=== PATIENT | female | born 1970 | race African-American/Black ===

== ENCOUNTER 2019-05-31 12:11 | Day surgery (SDC) | payer OTHER ==
[2019-05-29 15:08] VITALS: BMI 26.2
[2019-05-31] MEDS ORDERED: PROPOFOL 20 ML ONE ×2 (12:24)
[2019-05-31 15:02] VITALS: TEMP 98.2
[2019-05-31 15:49] VITALS: BP 110/62; PULSE 94
--- NOTE | 2019-06-02 16:49 | PATH ---
Surgical Pathology Report Patient Name: YARITZA LANGLEY [facility]. Rec. #: [id number] /Age/Gender: 1970 (Age: 48) / F Account: [id number] Location: [facility] Taken: 05/31/2019 Received: 05/31/2019 Reported: 06/02/2019 Physicians: Roxann May M.D. Specimen(s) Received A: SECOND PORTION DUODENUM B: GASTRIC ANTRUM C: GASTRIC POLYP D: GE JUNCTION Clinical History GERD Postoperative diagnosis: Gastric polyp, gastritis Final Diagnosis A. SECOND PORTION DUODENUM, BIOPSY: DUODENAL MUCOSA WITH NO SIGNIFICANT PATHOLOGIC CHANGE. NO HISTOLOGIC EVIDENCE OF INTRAEPITHELIAL LYMPHOCYTOSIS. B. ANTRUM, BIOPSY: GASTRIC MUCOSA WITH CHRONIC GASTRITIS. REACTIVE GASTROPATHY PRESENT. IMMUNOSTAIN FOR H. PYLORI IS NEGATIVE. NEGATIVE FOR INTESTINAL METAPLASIA. C. GASTRIC POLYP, BIOPSY: FUNDIC GLAND POLYP. IMMUNOSTAIN FOR H. PYLORI IS NEGATIVE. D. 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 REFLUX ESOPHAGITIS PRESENT. NEGATIVE FOR DYSPLASIA. Electronically Signed José Manuel Benjamin M.D. Gross Description A. Received in formalin, labeled "biopsy second portion of duodenum" is a jones, irregular portion of soft tissue measuring 0.2 cm. in greatest dimension. The specimen is submitted in toto in one cassette. B. Received in formalin, labeled "biopsy gastric antrum" is a jones, irregular portion of soft tissue measuring 0.3 cm. in greatest dimension. The specimen is submitted in toto in one cassette. C. Received in formalin, labeled "biopsy gastric polyp" is a jones, irregular portion of soft tissue measuring 0.4 cm. in greatest dimension. The specimen is submitted in toto in one cassette. D. Received in formalin, labeled "biopsy GE junction" is a jones, irregular portion of soft tissue measuring 0.4 cm. in greatest dimension. The specimen is submitted in toto in one cassette. 06/01/2019 saudi06/01/2019
== END 2019-05-31 15:51 | disposition home or self-care (01) ==
LOC: FASU-ENDO 12:11
PROVIDERS: ATTEND Internal Medicine Gastroenterology
PROC: 0DB68ZX Excision of Stomach, Via Natural or Artificial Opening Endoscopic, Diagnostic (ICD-10-PCS; 2019-05-31)
PROC: 0DB48ZX Excision of Esophagogastric Junction, Via Natural or Artificial Opening Endoscopic, Diagnostic (ICD-10-PCS; 2019-05-31)
PROC: 0DB98ZX Excision of Duodenum, Via Natural or Artificial Opening Endoscopic, Diagnostic (ICD-10-PCS; principal; 2019-05-31 13:15)
DX: K31.7 Polyp of stomach and duodenum (principal); K29.50 Unspecified chronic gastritis without bleeding; K22.70 Barrett's esophagus without dysplasia; K21.0 Gastro-esophageal reflux disease with esophagitis; K31.9 Disease of stomach and duodenum, unspecified
CPT/HCPCS: 84703; 88305-TC; 88342-TC